=== PATIENT | female | born 1955 | race Caucasian/White ===

== ENCOUNTER 2025-04-12 15:03 | Emergency (ER) | payer OTHER, MEDICAID ==
[~2025-04-12] VITALS: Ht 157.5 cm; Wt 75.0 kg
[~2025-04-12 15:03] MED LIST: AMLO2.5T45 PO; ASPI-986 PO; ATOR20TA65 PO; GABA-290 MT
[2025-04-12 15:07] VITALS: O2SAT 98
[2025-04-12] MEDS: NITROGLYCERIN 0.4MG TABLET SL SL ONE (16:28)
[2025-04-12] MEDS: ASPIRIN 81MG TABLET PO ONE (16:28)
[2025-04-12 17:29] LABS: BASOPHILS % 0.4 % (0.0-2.0); EOSINOPHILS % 1.0 % (0.0-5.0); HEMATOCRIT. 38.9 % (36.0-48.0); HEMOGLOBIN. 13.4 g/dL (12.0-16.0); LYMPHOCYTES % 17.6 % (20.0-50.0); MEAN PLATELET VOLUME 7.4 fl (7.4-10.4); MONOCYTES % 7.8 % (2.0-8.0); NEUTROPHILS % 73.2 % (40.0-76.0); PLATELET 299 x1000/uL (130-400); RED BLOOD CELL COUNT 4.31 mill/uL (4.2-5.4); RED CELL DISTRIBUTION WIDTH 14.2 % (11.6-14.6)
[2025-04-12 17:44] LABS: UREA NITROGEN BLOOD 10 mg/dL (9-23)
[2025-04-12 17:45] LABS: CREATININE 0.6 mg/dL (0.6-1.0); TROPONIN I HIGH SENSITIVITY 17 ng/L (3.0-34)
[2025-04-12 17:46] LABS: ASPARTATE AMINOTRANSFERASE 33 IU/L (<34); INR 1.0
[2025-04-12 17:47] LABS: BILIRUBIN DIRECT 0.3 mg/dL (<=3.0); BILIRUBIN TOTAL 0.9 mg/dL (0.1-1.0)
[2025-04-12 17:48] LABS: PROTEIN TOTAL 7.6 g/dL (6.0-8.3)
[2025-04-12] MEDS: POTASSIUM CHLORIDE 20MEQ/PACKET PO ONE (18:36)
[2025-04-12 19:56] LABS: TROPONIN I HIGH SENSITIVITY 32 ng/L (3.0-34)
[2025-04-12 20:22] VITALS: BP 127/71; PULSE 64; RESP 10; TEMP 36.8; O2SAT 97
[2025-04-12 20:51] LABS: TROPONIN I HIGH SENSITIVITY 34 ng/L (3.0-34)
== END 2025-04-12 19:20 | disposition home or self-care (01) ==
LOC: ER 15:03 → EDBEDREQ 15:21 → ER 19:20 → CMPBEDREQ 04-13 08:42
DX: R00.2 Palpitations (principal); F43.9 Reaction to severe stress, unspecified; I25.2 Old myocardial infarction; I10 Essential (primary) hypertension; R06.02 Shortness of breath
CPT/HCPCS: 36415; 71045; 80048; 80076; 83735; 83880; 84484; 85025; 85379; 93005; 99285